=== PATIENT | male | born 1960 | race Caucasian/White ===

== ENCOUNTER 2018-06-27 11:34 | Outpatient (RCR) | payer BC, SELFPAY | END 2018-07-04 23:59 | disposition home or self-care (01) | LOC: CR 11:34 | PROVIDERS: PCP Family Medicine; Visit Provider Family Medicine | DX: Z95.1 Presence of aortocoronary bypass graft (principal); I25.2 Old myocardial infarction; I10 Essential (primary) hypertension; Z51.89 Encounter for other specified aftercare | CPT/HCPCS: S9472 ==

== ENCOUNTER 2018-07-06 12:01 | Outpatient (RCR) | payer BC, SELFPAY | END 2018-08-03 23:59 | disposition home or self-care (01) | LOC: CR 12:01 | PROVIDERS: PCP Family Medicine; Visit Provider Family Medicine | DX: Z95.1 Presence of aortocoronary bypass graft (principal); I25.2 Old myocardial infarction; I10 Essential (primary) hypertension; Z51.89 Encounter for other specified aftercare | CPT/HCPCS: S9472 ==

== ENCOUNTER 2018-08-11 00:37 | Outpatient (CLI) | payer BC, SELFPAY ==
--- NOTE | 2018-08-11 09:51 | DI.RAD_ITS ---
SYMPTOM/DIAGNOSIS: DYSPHAGIA, R13.10 BARIUM SWALLOW: Fluoroscopy Time: 01.09 seconds Routine examination was performed. PA and lateral chest was performed. Comparison is 02/17/18. Heart size and pulmonary vasculature are stable. Sternal wires are in place. The patient is status post CABG. The lungs are clear. No effusions or pneumothoraces are identified. The bones are intact. The lungs appear hyperinflated suggesting underlying COPD. There is a normal swallowing mechanism. No gastroesophageal reflux, penetration or aspiration was noted during the examination. There is a small hiatal hernia. No ulcers, strictures, intrinsic or extrinsic masses are seen in the esophagus. Presbyesophagus was noted. IMPRESSION: Small hiatal hernia. No evidence of gastroesophageal reflux or aspiration.
[2018-08-11] MEDS: Barium Sulfate 60% W/V 355 ML BTL PO (11:20)
== END 2018-08-11 00:57 ==
PROVIDERS: PCP Family Medicine; Visit Provider Family Medicine
DX: R13.10 Dysphagia, unspecified (principal); K44.9 Diaphragmatic hernia without obstruction or gangrene
CPT/HCPCS: 74220; J3490

== ENCOUNTER 2019-04-14 08:32 | Outpatient (CLI) | payer BC, SELFPAY ==
[2019-04-14 11:13] LABS: Anion Gap 9.9 mmol/L (3-11); BUN 11 mg/dL (7-18); CO2 26.1 mmol/L (21.0-32.0); CREATININE 0.89 mg/dL (0.70-1.30); Calcium 8.8 mg/dL (8.5-10.1); Calculated LDL 84; Chloride 104 mmol/L (98-107); Cholesterol 155 mg/dL (50-200); Glucose 63 mg/dL (70-100); HDL Cholesterol 35 mg/dL (40-60); Potassium 4.2 mmol/L (3.5-5.1); Sodium 140 mmol/L (136-145); Triglyceride 181 mg/dL (30-150)
[2019-04-15 10:10] LABS: PSA, Screening 0.4 ng/ml (0-3.5)
== END 2019-04-14 08:52 ==
PROVIDERS: PCP Family Medicine; Visit Provider Family Medicine
DX: E78.5 Hyperlipidemia, unspecified (principal); I25.10 Atherosclerotic heart disease of native coronary artery without angina pectoris; Z12.5 Encounter for screening for malignant neoplasm of prostate
CPT/HCPCS: 36415; 80048; 80061; 83721; 84153

== ENCOUNTER → 2020-10-17 10:11 | Outpatient (CLI) | payer BC, SELFPAY ==
--- NOTE | 2020-10-17 10:00 | DI.RAD_ITS ---
EXAM: XR ELBOW RT COMPLETE CLINICAL HISTORY: right elbow pain M25.529 G89.29 CHRONIC PAIN. TECHNIQUE: 2D digital imaging was performed. COMPARISON: No exams were available for comparison FINDINGS: BONES: No acute fracture is present. No bony destructive lesion is seen. JOINTS: The elbow is normally aligned. No joint effusion is seen. SOFT TISSUE: Normal. IMPRESSION: Unremarkable radiographs of the right elbow. DATA REPOSITORY: RADIATION DOSE DELIVERED:
== END ==
DX: G89.29 Other chronic pain (principal); M25.521 Pain in right elbow
CPT/HCPCS: 73080

== ENCOUNTER 2021-01-06 07:17 | Day surgery (SDC) | payer BC, SELFPAY ==
[2021-01-06 07:20] VITALS: BP 131/81; PULSE 56; RESP 18; TEMP 36.4; O2SAT 100
[2021-01-06] MEDS: Lactated Ringers 1,000 ML 80 ML IV (07:54)
--- NOTE | 2021-01-06 08:18 | W.PM.DSUDISC ---
Discharge Plan Disposition Patient Disposition: HOME Condition: Good Discharge Details Reason For Visit: colon scope Attending Provider: Lora Kirkpatrick Primary Care Provider: Cindy Gaming Home Meds and New Rx's Prescriptions: Continued metoprolol succinate 50 mg tablet extended release 24 hr 50 mg PO DAILY Qty: 90 RF: 4 pantoprazole 40 mg tablet,delayed release (DR/EC) 40 mg PO DAILY Qty: 90 RF: 4 aspirin 81 MG tablet,chewable 81 mg PO DAILY RF: 0 acetaminophen 500 MG tablet 1,000 mg PO Q6H PRN RF: 0 amlodipine 5 mg tablet 5 mg PO DAILY Qty: 90 RF: 4 atorvastatin 40 mg tablet 40 mg PO DAILY Qty: 90 RF: 4 Discontinued polyethylene glycol 3350 17 gram/dose powder 238 g PO ONCE Qty: 238 RF: 0 bisacodyl [Dulcolax (bisacodyl)] 5 mg tablet,delayed release (DR/EC) 5 mg PO ONCE Qty: 4 RF: 0 Discharge Instructions Additional Instructions: Findings:polyps x4 moderate diverticula Follow up:We will send a letter in ~3wks w/ the results of pathology and when to repeat the colonoscopy. -No ASA/NSAID's for 5 days. Please call if you develop: fevers >101.5 Nausea or Vomiting Abdominal pain that is not transient DAY SURGERY UNIT POST COLONOSCOPY INSTRUCTIONS 1. Because there will be medication in your system for the next 24 hours, you may feel a little sleepy. Your coordination will be affected. Therefore: a. Do not drive or operate dangerous equipment for 24 hours. b. Do not drink alcohol beverages for 24 hours (not even beer). c. Plan to go home and rest for the day. 2. Generally there are no restrictions on your activity after a day or so has gone by, but you may feel a bit fatigued for a few days. 3 After you arrive home you may have a light meal and return to a normal diet as you can tolerate it without feeling sick to your stomach. 4. After surgery, you may feel pain or discomfort. This should be only transient, but if it persists please contact your doctor. 5. If there are any questions regarding the findings of your procedure, please feel free to contact your doctor. 6. If you are unable to contact your doctor with a problem, contact the hospital at [phone]. 7. Continue all your regular medications unless directed otherwise. I understand the above instructions and have no questions. Signature of Patient or Responsible Adult Escort Date/Time Name of Responsible Adult Escort Signature of Nurse Date/Time Activity:: no lifting over 20 pounds or strenuous activity x24 hours Diet:: Small weight meals x24 hours Discharge Orders Discharge Orders: Discharge Order (Routine); Ordered 01/06/21 Ordered By: Lora Kirkpatrick
--- NOTE | 2021-01-06 08:35 | BOWEL_PTH ---
PATIENT: Jack Martinez LOC: [facility] U#:[id number] AGE/SX: 60/M ROOM: RE01/06/[address]: Lora Kirkpatrick : 1960 BED: DIS: 01/06/2021 SPEC #: [id number] RECD: 01/06/21 12:40 STATUS: PADDY RESylvain #: [id number] JEN: 01/06/21 08:[address]: Lora Kirkpatrick DEPT: Surgical Specimen RECD BY: Thi Ignacio ENTERED: 01/06/21 12:41 SP TYPE: Bowel OTHR DR: Cindy Gaming APRN Tissues: 1 - BIOPSY BOWEL 2 - BIOPSY BOWEL 3 - BIOPSY BOWEL 4 - BIOPSY BOWEL Procedures: GROSS AND MICRO LEVEL 4 Comments: [id number]
--- NOTE | 2021-01-06 09:05 | DSE_ITS ---
Date of service: 01/06/21 Time of Service: 09:05 DS: Diagnosis Discharge Diagnosis (1) Adenomatous polyps: Status: Acute (2) Diverticula of colon: Status: Acute Discharge Plan Disposition Patient Disposition: HOME Condition: Good Discharge Details Reason For Visit: colon scope Attending Provider: Lora Kirkpatrick Primary Care Provider: Cindy Gaming Home Meds and New Rx's Prescriptions: Continued metoprolol succinate 50 mg tablet extended release 24 hr 50 mg PO DAILY Qty: 90 RF: 4 pantoprazole 40 mg tablet,delayed release (DR/EC) 40 mg PO DAILY Qty: 90 RF: 4 aspirin 81 MG tablet,chewable 81 mg PO DAILY RF: 0 acetaminophen 500 MG tablet 1,000 mg PO Q6H PRN RF: 0 amlodipine 5 mg tablet 5 mg PO DAILY Qty: 90 RF: 4 atorvastatin 40 mg tablet 40 mg PO DAILY Qty: 90 RF: 4 Discontinued polyethylene glycol 3350 17 gram/dose powder 238 g PO ONCE Qty: 238 RF: 0 bisacodyl [Dulcolax (bisacodyl)] 5 mg tablet,delayed release (DR/EC) 5 mg PO ONCE Qty: 4 RF: 0 Discharge Instructions Additional Instructions: Findings: Follow up: Please call if you develop: fevers >101.5 Nausea or Vomiting Abdominal pain that is not transient DAY SURGERY UNIT POST COLONOSCOPY INSTRUCTIONS 1. Because there will be medication in your system for the next 24 hours, you may feel a little sleepy. Your coordination will be affected. Therefore: a. Do not drive or operate dangerous equipment for 24 hours. b. Do not drink alcohol beverages for 24 hours (not even beer). c. Plan to go home and rest for the day. 2. Generally there are no restrictions on your activity after a day or so has gone by, but you may feel a bit fatigued for a few days. 3 After you arrive home you may have a light meal and return to a normal diet as you can tolerate it without feeling sick to your stomach. 4. After surgery, you may feel pain or discomfort. This should be only transient, but if it persists please contact your doctor. 5. If there are any questions regarding the findings of your procedure, please feel free to contact your doctor. 6. If you are unable to contact your doctor with a problem, contact the hospital at [phone]. 7. Continue all your regular medications unless directed otherwise. I understand the above instructions and have no questions. Signature of Patient or Responsible Adult Escort Date/Time Name of Responsible Adult Escort Signature of Nurse Date/Time Activity:: no lifting over 20 pounds or strenuous activity x24 hours Diet:: Small weight meals x24 hours Discharge Orders Discharge Orders: Discharge Order (Routine); Ordered 01/06/21 Ordered By: Lora Kirkpatrick DS: Data Vitals/I&O Vitals and I&O: Vital Signs Temperature 36.4 C L 01/06/21 07:20 Pulse 56 L 01/06/21 07:20 Pulse Rhythm Regular 01/06/21 07:20 Respiratory Rate 18 01/06/21 07:20 Respiratory Depth Normal 01/06/21 07:20 Blood Pressure 131/81 01/06/21 07:20 Pulse Oximetry 100 01/06/21 07:20 Oxygen Delivery Method Room Air 01/06/21 07:20 Oxygen Flow Rate 0 01/06/21 07:20 Intake & Output 01/05/21 01/05/21 01/06/21 11:59 23:59 11:59 Intake Total 300 / 300 Balance 300 / 300 Weight 76.884 kg 75.1 kg Intake: IV 300 / 300 PFSH Medical History (Updated 01/06/21 @ 09:06 by Lora M Stoiber, DO) Elbow pain, chronic Family history of prostate cancer Testicular abnormality 2017 - Epididymal cysts (> right) versus spermatoceles per U/S Surgical History (Updated 01/06/21 @ 07:37 by Brisa Navarrete) Arthroplasty of knee error Arthroscopy, Shoulder RIGHT BUNIONECTOMY LEFT S/P triple vessel bypass Family History Mother Heart disease Hyperlipidemia Cancer uterine Father , AGE 49 Essential hypertension Heart disease Myocardial infarction Stroke Maternal Grandfather Bone cancer Paternal Grandfather No problems noted. Maternal Grandmother Brain cancer Paternal Grandmother No problems noted. Brother Prostate cancer Sister Hyperlipidemia Thyroid cancer Son No problems noted. Son No problems noted. Brother Diabetes Social History Smoking/Tobacco Use Status: Former Tobacco Use Quit Date: 07/05/17 Tobacco: How many years used: 18 Smoking risk assessment performed?: Yes Alcohol Intake: never Drug use: Never Caregiver/Support person: No Household members: other Details: Mother, Uncle Housing: house Communication Needs: None Do you need help understanding health information?: Rarely current occupation: [employer] Pets and animals: Yes Pets and animals: cat(s) and dog(s) Sexually active: Yes Do you think of yourself as: straight/heterosexual What is your relationship status?: How often do you talk on the phone with friends or family?: never How often do you get together with friends or relatives?: never How often do you attend scientologist or temple services?: 1-3 times per year Do you belong to any clubs or organized social groups?: no Panel score (0-1 are the most socially isolated patients): 0 What type of physical activity do you participate in: walking Duration: 30-45 minutes/day Frequency: daily Aissatou/Restorationist: Christianity Seatbelt use: sometimes Helmet use: Yes Helmet use: always Drive intox or ride w/intox commercial truck driver: No Do you feel safe at home: Yes Do you feel safe in your relationship?: Yes Victim of physical abuse: No Victim of emotional abuse: No Would you like helpful sources: No
--- NOTE | 2021-01-06 09:06 | COLE_ITS ---
Date of service: 01/06/21 Time of Service: 09:06 Colonoscopy Report Date of procedure: 01/06/21 Pre-op diagnosis general: CRC screen Post-op diagnosis procedure note: other (polyps and divertic ) Surgeon: Lora Kirkpatrick Anesthesia proc note operative: GETA Estimated blood loss (mL): 2 Pathology: other Complications: None Disposition: same day Prep: Miralax/Dulcolax Retraction Time: 15 mins Procedure Description: After informed consent was obtained the patient was taken to the procedure room and placed in a left decubitous position. Monitors were applied and a time out was done. The patients name, date of , procedure, allergies to medications and metal in their body was reviewed. The patient was then sedated. Once sedated and comfortable a rectal exam was done. External exam was normal. Internal exam revealed a normal sphincter tone and no palpable masses. The scope was then introduced and retrofelexed. no internal hemorrhoids were identified. The scope was then advanced to the cecum w/out difficulty. The TI and appendiceal orifice were identified. The prep was good. The scope was then slowly retracted over 15 minutes back into the rectum. He had 4 polyps removed. Each of these polyps was less than 5 mm, flat, not ulcerated. Each of these polyps was removed with a cold biting forcep. Each specimen is retrieved and no bleeding is noted. Polyps are removed at 15, 30, 20cm, and in the rectum. She also has moderate diverticula confined to the sigmoid colon. There is no signs of active bleeding or infection. The scope was removed and the patient was woken up and taken back to Same day surgery in stable condition. The patient tolerated the procedure well and there were no immediate complications. Follow up: The patient should follow up in 3-5 years ~path pd, unless they d evelop changes in bowel habits or other new gastrointestinal complaints.
[2021-01-06 09:45] VITALS: BP 123/69; PULSE 58; RESP 18; TEMP 36; O2SAT 98
== END 2021-01-06 10:40 | disposition home or self-care (01) ==
PROVIDERS: Visit Provider Surgery
PROC: 0DJD8ZZ Inspection of Lower Intestinal Tract, Via Natural or Artificial Opening Endoscopic (ICD-10-PCS; CPT 45378; principal; 2021-01-06 08:15)
DX: Z12.11 Encounter for screening for malignant neoplasm of colon (principal); K63.5 Polyp of colon; K62.1 Rectal polyp; K57.30 Diverticulosis of large intestine without perforation or abscess without bleeding
CPT/HCPCS: 45380; 88305; J2001

== ENCOUNTER 2021-06-16 02:14 | Outpatient (CLI) | payer BC, SELFPAY ==
[2021-06-16 13:34] LABS: ALT 23 U/L (16-63); AST 23 U/L (15-37); Albumin 3.8 g/dL (3.4-5.0); Alkaline Phosphatase 93 U/L (46-116); BUN 13 mg/dL (7-18); Bilirubin, Total 0.4 mg/dL (0.2-1.0); CREATININE 0.8 mg/dL (0.70-1.30); Calcium 9.1 mg/dL (8.5-10.1); Calculated LDL 117 mg/dL (<100); Chloride 108 mmol/L (98-107); Cholesterol 170 mg/dL (<200); Glucose 90 mg/dL (74-106); HDL Cholesterol 37 mg/dL (40-60); Potassium 4.7 mmol/L (3.5-5.1); Sodium 139 mmol/L (136-145); Triglyceride 83 mg/dL (<150)
[2021-06-16 17:19] LABS: PSA, Screening 0.6 ng/mL (0.0-4.5)
== END 2021-06-16 02:15 | disposition home or self-care (01) ==
PROVIDERS: Visit Provider Family Medicine
DX: E78.5 Hyperlipidemia, unspecified (principal); I10 Essential (primary) hypertension; F41.9 Anxiety disorder, unspecified; Z12.5 Encounter for screening for malignant neoplasm of prostate; Z80.42 Family history of malignant neoplasm of prostate
CPT/HCPCS: 36415; 80053; 80061; 84153

== ENCOUNTER 2021-11-14 13:46 | Outpatient (CLI) | payer BC, SELFPAY ==
--- NOTE | 2021-11-14 13:00 | DI.RAD_ITS ---
Exam(s) XR TOE LT GREAT EXAM: XR TOE LT GREAT CLINICAL HISTORY: injury left great toe r/o fx, S99.22A. suspect dislocation TECHNIQUE: COMPARISON: No exams were available for comparison FINDINGS: Three views were obtained. There is a dorsal dislocation of the distal phalanx on the proximal phala nx of the great toe. There is no fracture identified on the films obtained. IMPRESSION: RADIATION DOSE DELIVERED: Total DLP
--- NOTE | 2021-11-14 15:30 | DI.RAD_ITS ---
Exam(s) XR TOE LT GREAT EXAM: XR TOE LT GREAT CLINICAL HISTORY: post reduction s93.105a dislocation left toe TECHNIQUE: COMPARISON: CR XR TOE LT GREAT from 11/14/2021 FINDINGS: Three views were obtained. The previously described IP joint dislocation of the great toe has been r educed. No fracture is seen. IMPRESSION: RADIATION DOSE DELIVERED: Total DLP
== END 2021-11-14 14:06 ==
LOC: DI 13:49
PROVIDERS: Visit Provider Physician Assistant
DX: S93.105A Unspecified dislocation of left toe(s), initial encounter
CPT/HCPCS: 73660

== ENCOUNTER 2022-01-15 00:09 | Outpatient (CLI) | payer BC, SELFPAY ==
--- NOTE | 2022-01-15 08:00 | DI.RAD_ITS ---
Exam(s) XR FOOT LT COMPLETE EXAM: XR FOOT LT COMPLETE CLINICAL HISTORY: s/p injury 8 wk ago-great toe disloc-still toe pain,hyperextension injury,. TECHNIQUE: 2D digital imaging was performed. COMPARISON: CR XR TOE LT GREAT from 11/14/2021 FINDINGS: BONES: No acute fracture is present. No bony destructive lesion is seen. Prior 1st metatarsal bunion ectomy. JOINTS: No dislocation present. Joint spaces well maintained. SOFT TISSUE: Normal. IMPRESSION: No acute abnormality. Bunionectomy. DATA REPOSITORY: RADIATION DOSE DELIVERED:
== END 2022-01-15 00:29 ==
LOC: DI 00:09
PROVIDERS: Visit Provider Family Medicine
DX: M79.675 Pain in left toe(s) (principal); S93.692D Other sprain of left foot, subsequent encounter; Z98.890 Other specified postprocedural states; S99.822D Other specified injuries of left foot, subsequent encounter
CPT/HCPCS: 73630

== ENCOUNTER → 2022-03-27 11:39 | Outpatient (CLI) | payer OTHER, SELFPAY ==
--- NOTE | 2022-03-27 11:00 | DI.RAD_ITS ---
Exam(s) XR FOOT LT COMPLETE EXAM: XR FOOT LT COMPLETE CLINICAL HISTORY: SECOND injury of left foot (11/14/21) - S97.82XA TECHNIQUE: COMPARISON: CR XR FOOT LT COMPLETE from 01/15/2022 FINDINGS: Three views were obtained. Old 1st metatarsal osteotomy is noted, no change in appearance from January 15. There is no evidence of acute fracture or dislocation. IMPRESSION: RADIATION DOSE DELIVERED: Total DLP
== END ==
DX: S97.82XA Crushing injury of left foot, initial encounter (principal); M79.672 Pain in left foot; Z98.890 Other specified postprocedural states
CPT/HCPCS: 73630

== ENCOUNTER 2022-12-18 12:22 | Outpatient (CLI) | payer BC, SELFPAY ==
[2022-12-18 13:04] LABS: ALT 22 U/L (16-63); AST 19 U/L (15-37); Alkaline Phosphatase 109 U/L (46-116); Anion Gap 8.9 mmol/L (3-11); BUN 10 mg/dL (7-18); Bilirubin, Total 0.4 mg/dL (0.2-1.0); CO2 27.1 mmol/L (21.0-32.0); Calcium 9.3 mg/dL (8.5-10.1); Calculated LDL 86 mg/dL (<100); Chloride 107 mmol/L (98-107); Cholesterol 155 mg/dL (<200); Glucose 91 mg/dL (74-106); HDL Cholesterol 46 mg/dL (40-60); Potassium 4.2 mmol/L (3.5-5.1); Sodium 143 mmol/L (136-145); Total Protein 7.5 g/dL (6.4-8.2); Triglyceride 115 mg/dL (<150)
[2022-12-18 18:04] LABS: PSA, Screening 0.3 ng/mL (<=4.5)
== END 2022-12-18 12:23 | disposition home or self-care (01) ==
LOC: LOS 12:29
PROVIDERS: PCP Nurse Practitioner Family; Visit Provider Nurse Practitioner Family
DX: E78.5 Hyperlipidemia, unspecified (principal); Z12.5 Encounter for screening for malignant neoplasm of prostate; I10 Essential (primary) hypertension
CPT/HCPCS: 36415; 80053; 80061; 84153

== ENCOUNTER 2023-11-26 14:18 | Outpatient (REF) | payer BC, SELFPAY ==
[2023-11-26 13:07] LABS: ALT 28 U/L (16-63); AST 17 U/L (15-37); Albumin 3.8 g/dL (3.4-5.0); Alkaline Phosphatase 111 U/L (46-116); Anion Gap 8.5 mmol/L (3-11); BUN 15 mg/dL (7-18); Bilirubin, Total 0.4 mg/dL (0.2-1.0); CO2 26.5 mmol/L (21.0-32.0); CREATININE 0.9 mg/dL (0.70-1.30); Calcium 9.4 mg/dL (8.5-10.1); Calculated LDL 114 mg/dL (<100); Chloride 106 mmol/L (98-107); Cholesterol 179 mg/dL (<200); Estimated GFR 95.97 (mL/min/1.73m2); Glucose 98 mg/dL (74-106); HDL Cholesterol 48 mg/dL (40-60); Potassium 4.4 mmol/L (3.5-5.1); Sodium 141 mmol/L (136-145); Total Protein 7.3 g/dL (6.4-8.2); Triglyceride 88 mg/dL (<150)
[2023-11-26 19:05] LABS: PSA, Screening 0.5 ng/mL (<=4.5)
[2023-11-26 19:46] LABS: HIV-1/2 Ag & Ab Screen Negative (Negative); Hepatitis C Ab w Rflx HCV PCR Negative (Negative)
== END 2023-11-26 14:19 | disposition home or self-care (01) ==
LOC: LBN 14:18
PROVIDERS: PCP Nurse Practitioner Family; Visit Provider Nurse Practitioner Family
DX: E78.5 Hyperlipidemia, unspecified (principal); Z12.5 Encounter for screening for malignant neoplasm of prostate; Z11.4 Encounter for screening for human immunodeficiency virus [HIV]; Z11.59 Encounter for screening for other viral diseases; Z80.42 Family history of malignant neoplasm of prostate
CPT/HCPCS: 80053; 80061; 84153; 86803; 87389

== ENCOUNTER 2024-11-30 10:38 | Outpatient (CLI) | payer BC, SELFPAY ==
[2024-11-30 12:38] LABS: ALT 21 U/L (16-63); AST 22 U/L (15-37); Albumin 3.8 g/dL (3.4-5.0); Alkaline Phosphatase 106 U/L (46-116); Anion Gap 10.2 mmol/L (3-11); BUN 11 mg/dL (7-18); Bilirubin, Total 0.32 mg/dL (0.2-1.0); CO2 26.8 mmol/L (21.0-32.0); Calcium 9.2 mg/dL (8.5-10.1); Calculated LDL 117 mg/dL (<100); Chloride 106 mmol/L (98-107); Cholesterol 200 mg/dL (<200); Estimated GFR 84.05 (mL/min/1.73m2); Glucose 86 mg/dL (74-106); HDL Cholesterol 47 mg/dL (40-60); Sodium 143 mmol/L (136-145); Triglyceride 183 mg/dL (<150)
[2024-11-30 17:56] LABS: PSA, Screening 0.6 ng/mL (<=4.5)
== END 2024-11-30 10:39 | disposition home or self-care (01) ==
LOC: LOS 10:38
PROVIDERS: PCP Nurse Practitioner Family; Referring Provider Nurse Practitioner Family; Visit Provider Nurse Practitioner Family
DX: E78.5 Hyperlipidemia, unspecified (principal); Z80.42 Family history of malignant neoplasm of prostate; Z87.891 Personal history of nicotine dependence; I25.10 Atherosclerotic heart disease of native coronary artery without angina pectoris; I10 Essential (primary) hypertension
CPT/HCPCS: 36415; 80053; 80061; 84153

== ENCOUNTER 2025-05-10 17:40 | Emergency (ER) | payer BC, SELFPAY ==
[2025-05-10 17:46] VITALS: BP 118/69; PULSE 66; RESP 18; TEMP 36.3; O2SAT 96
[2025-05-10 18:36] LABS: Abs Immature Grans 0.02 10^3/uL (0.0-0.06); HCT 42.0 % (40.0-50.0); HGB 14.2 g/dL (13.5-17.5); Immature Grans % 0.2 %; MCH 29.2 pg (27.0-33.0); MCHC 33.8 % (32.0-36.0); MCV 86 fL (80-95); MPV 10.8 fL (8.0-11.0); Platelet Count 198 10^3/uL (130-400); RBC 4.87 10^6/uL (4.36-5.78); RDW 12.5 % (11.8-14.1); RDW-SD 39.2 fL; WBC 8.14 10^3/uL (4.4-10.8)
[2025-05-10 18:53] LABS: ALT 24 U/L (16-63); AST 18 U/L (15-37); Albumin 3.9 g/dL (3.4-5.0); Alkaline Phosphatase 107 U/L (46-116); Anion Gap 8.8 mmol/L (3-11); BUN 13 mg/dL (7-18); Bilirubin, Total 0.3 mg/dL (0.2-1.0); CO2 27.2 mmol/L (21.0-32.0); Calcium 9.0 mg/dL (8.5-10.1); Chloride 107 mmol/L (98-107); Estimated GFR 74.96 (mL/min/1.73m2); Glucose 80 mg/dL (74-106); Potassium 4.4 mmol/L (3.5-5.1); Sodium 143 mmol/L (136-145); Total Protein 7.4 g/dL (6.4-8.2)
[2025-05-10 19:06] LABS: D-Dimer 466 ng/mlFEU (<500)
[2025-05-10] MEDS: Omnipaque 350 MG/ML 100 ML BTL IJ (19:07)
[2025-05-10] MEDS: Normal Saline - Diluent 50 ML VIAL IJ ×2 (19:08→19:09)
[2025-05-10] MEDS: Omnipaque 350 MG/ML 50 ML BTL IJ (19:08)
[2025-05-10] MEDS: Normal Saline Flush 10 ML SYR IVP (19:09)
--- NOTE | 2025-05-10 19:22 | DI.CT_ITS ---
Exam(s) CT ABD AORTA CTA W RUNOFF EXAM: CT ABD AORTA CTA W RUNOFF CLINICAL HISTORY: hx stent Lleg, popliteal pain, paresthesias. TECHNIQUE: Imaging Protocol: Axial CT angiography was performed with multi- slice acquisition and multi-planar and/or 3D reconstructions. CONTRAST MATERIAL: Intravenous: Omnipaque 350 Contrast volume:150 ml Contrast route:IV - Oral: no COMPARISON: CT RENAL COLIC WO CONTRAST from 06/15/2013 FINDINGS: Vascular Structures: Aorta: Multi focal diffuse calcified and noncalcified atherosclerotic changes. No stenosis. No aneurysm. No dissection. Celiac [place]: Plaque at the origin causing stenosis 60-70 percent. SMA: No evidence of stenosis. BARBARA: Patent. Renal Arteries: Mild plaque at the origin of the right renal artery. No evidence of stenosis. There is a single renal artery perfusing the right kidney. There are 2 renal arteries perfusing the left kidney. Iliac Arteries: Multi focal calcified plaque without significant stenosis. Common Femoral Arteries: Mild scattered plaque. No evidence of stenosis. Lower extremities: Right: Superficial Femoral: Scattered plaque. No evidence of stenosis. Popliteal: Scattered plaque. No evidence of stenosis. Lower leg arteries: Left: Superficial Femoral: Mild scattered plaque. No significant stenosis. Popliteal: Stent in place. There is a focal stenosis at the junction of the popliteal artery with the stent causing stenosis of approximately 80 percent. Lower leg arteries: Extensive diffuse calcified and noncalcified plaque involving all 3 vessels, greatest in the posterior tibial artery with multifocal areas of severe stenosis. Soft Tissues: Lungs: No acute findings. Liver: Mild fatty infiltration. No measurable mass. Gallbladder and biliary tract: No radiodense calculus or dilation. Pancreas: Normal density, no abnormal calcifications or inflammatory process. Spleen: Normal. Kidneys: Normal size, contour and axis. No radiodense stones or obstructive uropathy. No masses seen. Adrenal glands: No masses seen. Aorta: Abdominal portion non-dilated. Bladder: Symmetric distention, no gross wall thickening. Bowel: No obstruction or bowel wall thickening. Sigmoid diverticulosis. Peritoneal cavity: No ascites, collection or mesenteric inflammatory response. Bones: Within normal limits. Reproductive: Unremarkable. 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 Multifocal plaque in the superficial femoral arteries without significant stenosis. Left popliteal artery stent with significant stenosis at the proximal end, proximally 80 percent. Severe disease in the lower leg arteries, greater in the posterior tibial arteries. The findings are greater on the right where there are multi focal areas of occlusion. The preliminary [facility] report was reviewed. RADIATION DOSE DELIVERED: Total DLP DATA REPOSITORY: All CT scans at this facility are submitted to the National Radiology Data Registry (NRDR) Dose Index Registry (DIR) with the [employer] ([employer]). RADIATION OPTIMIZATION: All CT scans at this facility use at least one of these dose optimization techniques: automated exposure control; mA and/or kV adjustment per patient size (includes targeted exams where dose is matched to clinical indication); or iterative reconstruction.
--- NOTE | 2025-05-10 20:41 | DI.[facility]_ITS ---
PROCEDURE INFORMATION: Exam: CTA Abdominal Aorta and Bilateral Lower Extremities (Run-off) With Contrast Exam date and time: 05/10/2025 6:56 PM Age: 64 years old Clinical indication: Other: HX stent lleg, popliteal pain, paresthesias; Prior surgery; Surgery date: 6+ months TECHNIQUE: Imaging protocol: Computed tomographic angiography of the of the abdominal aorta, pelvis and bilateral lower extremities with contrast. 3D rendering (Not supervised by radiologist): MIP and/or 3D reconstructed images were created by the technologist. Contrast material: OMNIPAQUE 350; Contrast volume: 150 ml; Contrast route: INTRAVENOUS (IV); COMPARISON: CR XR FOOT LT COMPLETE 03/27/2022 11:31 AM FINDINGS: Aorta: Mild calcified plaques within the abdominal aorta without hemodynamically significant stenosis. Celiac trunk and mesenteric arteries: Focal stenosis identified in the origin of the celiac artery measuring a proximally 60-70% and considered to be hemodynamically significant. Renal arteries: No occlusion or significant stenosis. Right iliac arteries: No occlusion or significant stenosis. Right femoral/popliteal arteries: Scattered calcified and noncalcified plaques within the right superficial femoral artery without hemodynamically significant stenosis. Calcified and noncalcified plaques within the right popliteal artery with no hemodynamically significant stenosis. Right infrapopliteal arteries: Calcified and noncalcified plaques within all 3 runoff arteries with severe disease in the right posterior tibial artery which is predominantly occluded likely on a chronic basis. Focal stenoses identified in the right tibioperoneal trunk many of which are hemodynamically significant. Left iliac arteries: No occlusion or significant stenosis. Left femoral/popliteal arteries: Calcified and noncalcified plaques within the left superficial femoral artery without hemodynamically significant stenosis. Calcified and noncalcified plaques within the left popliteal artery with a stent noted which appears to be patent. However at the junction of the [place] popliteal artery in the proximal stent there is a focal stenosis measuring greater than 80-85% and considered to be hemodynamically significant. Left infrapopliteal arteries: Calcified and noncalcified plaque identified within all 3 runoff arteries in the left lower extremity with severe disease identified in the left posterior tibial artery with multiple focal stenoses many of which are hemodynamically significant. Liver: Fatty infiltration of the liver. Gallbladder and biliary ducts: Unremarkable. No calcified stones. No ductal dilation. Pancreas: Unremarkable. No mass. No ductal dilation. Spleen: Normal. No splenomegaly. Adrenal glands: Normal. No mass. Kidneys and ureters: Normal. No mass. Stomach and bowel: Sigmoid diverticulosis. No CT evidence for diverticulitis. Appendix: No evidence of appendicitis. Urinary bladder: Unremarkable. No mass. Reproductive: Unremarkable as visualized. Intraperitoneal space: Unremarkable. No free air. No significant fluid collection. Lymph nodes: No lymphadenopathy. Bones/joints: No acute fracture. No dislocation. Soft tissues: Unremarkable. IMPRESSION: 1. Left popliteal stent identified and patent although there is a focal high-grade stenosis identified measuring proximally 80-85% at the origin of the stent and junction with the [place] popliteal artery. 2. Two-vessel runoff identified in both lower extremities with the anterior tibial arteries and peroneal arteries being the dominant runoff arteries with severe disease in both posterior tibial arteries with multiple focal high-grade stenoses. 3. Focal stenosis identified in the origin of the celiac artery measuring a proximally 60-70% and considered to be hemodynamically significant. 4. Sigmoid diverticulosis. 5. Fatty infiltration of the liver. Dictated and Authenticated by: Titi Blankenship MD. Orderin Anselmo Ness MD
[2025-05-10 20:51] VITALS: BP 120/74; PULSE 70
--- NOTE | 2025-05-10 22:29 | ED.GENADUL_ITS ---
Discharge Plan Disposition Patient Disposition: Home Condition: Stable Discharge Details Clinical Impression: Popliteal artery stenosis, left Primary Care Provider: Shaan Trujillo ED Provider: Thi Briones Home Meds and New Rx's Prescriptions: Continued gabapentin 300 mg capsule 300 mg PO BID Qty: 180 3RF amlodipine 5 mg tablet 5 mg PO DAILY Qty: 90 4RF atorvastatin 40 mg tablet 40 mg PO DAILY Qty: 90 4RF aspirin 81 MG tablet,chewable 81 mg PO DAILY acetaminophen 500 MG tablet 1,000 mg PO Q6H PRN metoprolol succinate 50 mg tablet extended release 24 hr 50 mg PO DAILY Qty: 90 14RF pantoprazole 40 mg tablet,delayed release (DR/EC) See Rx Instructions .ROUTE .COMPLEX Qty: 90 4RF Dose Instruction: TAKE ONE TABLET BY MOUTH EVERY DAY Rx Instructions: TAKE ONE TABLET BY MOUTH EVERY DAY Discharge Instructions Additional Instructions: follow-up with [facility] vascular surgery tomorrow, let them know we spoke with Dr Simpson in the emergency department today and they'd like to see you this week should you develop worsening symptoms or discoloration, please return immediately for reassessment Referrals: thanh [Other] Shaan Trujillo, [employer] [Primary Care Provider, Medicine] HPI General Date/Time Provider Initiated Documentation: 05/10/25 18:17 . HPI Narrative: 64-year-old male with popliteal artery stent, hyperlipidemia, tobacco abuse, and hypertension presents with claudication pain in the left lower extremity. Pain started 5-6 days ago, worsened after returning from [place]. Concerned about stent. No anticoagulation. No chest pain or shortness of breath. Related Data Home Medications ?Medication ?Instructions ?Recorded ?Confirmed aspirin 81 mg chewable tablet 81 mg PO DAILY 08/06/17 05/10/25 acetaminophen 500 mg tablet 1,000 mg PO Q6H PRN 05/10/25 gabapentin 300 mg capsule 300 mg PO BID #180 caps 05/0505/10/25 metoprolol succinate 50 mg 50 mg PO DAILY #90 tabs 12/2805/10/25 tablet,extended release 24 hr pantoprazole 40 mg tablet,delayed See Rx Instructions .Route 06/05/24 05/10/25 release .COMPLEX #90 tabs amlodipine 5 mg tablet 5 mg PO DAILY #90 tab-caps 0 11/30/24 05/10/25 atorvastatin 40 mg tablet 40 mg PO DAILY #90 tab-caps 11/30/24 05/10/25 Previous Rx's ?Medication ?Instructions ?Recorded gabapentin 300 mg capsule 300 mg PO BID #180 caps 05/05 01/25 metoprolol succinate 50 mg 50 mg PO DAILY #90 tabs 12/28 tablet,extended release 24 hr pantoprazole 40 mg tablet,delayed See Rx Instructions .Route 06/05/24 release .COMPLEX #90 tabs amlodipine 5 mg tablet 5 mg PO DAILY #90 tab-caps 0 11/30/24 atorvastatin 40 mg tablet 40 mg PO DAILY #90 tab-caps 11/30/24 Allergies Allergy/AdvReac Type Severity Reaction Status Date / Time morphine Allergy Mild Skin Rash Verified 05/10/25 17:51 naproxen sodium (From Aleve) AdvReac Severe Psychosis Verified 05/10/25 17:51 milk AdvReac Intermediate GI Verified 05/10/25 17:51 intolerance General Stated Complaint: Orthopedic PARUL: 4 Exam Narrative Exam Narrative: General Appearance: Normal. Vital signs: Within normal limits. HEENT: Within normal limits. Respiratory: Within normal limits. Cardiovascular: DP and PT pulses intact, DP pulse difficult to find. Extremities: Left foot warm. Capillary refill slightly delayed but intact. Skin: Warm and dry, no rash. Neurological: Normal. Course Vital Signs Vital signs: Vital Signs Temperature 36.3 C L 05/10/25 17:46 Pulse 66 05/10/25 17:46 Respiratory Rate 18 05/10/25 17:46 Blood Pressure 118/69 05/10/25 17:46 Pulse Oximetry 96 05/10/25 17:46 Temperature 36.3 C L 05/10/25 17:46 Temperature Source Oral 05/10/25 17:46 Pulse 70 05/10/25 20:51 Respiratory Rate 18 05/10/25 17:46 Blood Pressure 120/74 05/10/25 20:51 Blood Pressure Mean 89 05/10/25 20:51 Blood Pressure Position Sitting 05/10/25 17:46 Pulse Oximetry 96 05/10/25 17:46 Pain Level 7 05/10/25 17:46 Lab/Test Results Lab/Test Results: Laboratory Tests Range/Units 07/07/25 18:31 WBC (4.4-10.8) 10^3/uL 8.14 RBC (4.36-5.78) 10^6/uL 4.87 Hgb (13.5-17.5) g/dL 14.2 Hct (40.0-50.0) % 42.0 MCV (80-95) fL 86 MCH (27.0-33.0) pg 29.2 MCHC (32.0-36.0) % 33.8 RDW (11.8-14.1) % 12.5 Plt Count (130-400) 10^3/uL 198 MPV (8.0-11.0) fL 10.8 Immature Gran % % 0.2 Neutrophils % % 50.0 Lymphocytes % % 36.6 Monocytes % % 9.5 Eosinophils % % 3.1 Basophils % % 0.6 Nucleated RBC % (0.0-0.3) % 0.0 Absolute Neutrophils (1.2-6.7) 10^3/uL 4.07 Absolute Lymphocytes (1.2-3.4) 10^3/uL 2.98 Absolute Monocytes (0.1-0.8) 10^3/uL 0.77 Absolute Eosinophils (0.0-0.7) 10^3/uL 0.25 Absolute Basophils (0.0-0.2) 10^3/uL 0.05 D-Dimer (<500) ng/mlFEU 466 Sodium (136-145) mmol/L 143 Potassium (3.5-5.1) mmol/L 4.4 Chloride (98-107) mmol/L 107 Carbon Dioxide (21.0-32.0) mmol/L 27.2 Anion Gap (3-11) mmol/L 8.8 BUN (7-18) mg/dL 13 Creatinine (0.70-1.30) mg/dL 1.1 Est GFR (CKD-EPI 2020) (mL/min/1.73m2) 74.96 Glucose (74-106) mg/dL 80 Calcium (8.5-10.1) mg/dL 9.0 Total Bilirubin (0.2-1.0) mg/dL 0.3 AST (15-37) U/L 18 ALT (16-63) U/L 24 Alkaline Phosphatase (46-116) U/L 107 Total Protein (6.4-8.2) g/dL 7.4 Albumin (3.4-5.0) g/dL 3.9 Medical Decision Making Imaging: CTA shows 80-85% stenosis at stent origin and [place] popliteal artery junction. Two-vessel runoff in lower extremities, dominant runoff in anterior tibial and peroneal arteries with severe disease in tibial arteries and focal high-grade stenosis. 60-70% focal stenosis at celiac artery per virtual radiologist. Labs: CBC and chemistry unremarkable. Initial Assessment: 64-year-old male with history of stent in popliteal artery, hyperlipidemia, tobacco abuse, hypertension presents with claudication pain in left lower extremity. Pain started 5-6 days ago, worsened after returning from [place]. Concerned about stent. No anticoagulation, chest pain, or shortness of breath. ED Course: - DP and PT pulses intact, DP pulse challenging to find. - CTA shows 80-85% stenosis at stent origin and [place] popliteal artery junction. - Left foot warm, capillary refill slightly delayed but intact. - No wounds on feet bilaterally. - Unremarkable labs including CBC and chemistry. - Discussed case with Dr. Mata, vascular surgeon at [facility]. - Recommended urgent follow-up this week, no urgent transfer needed. - Hold off on Xarelto until seen this week. - Plan reasonable for discharge. - Will call tomorrow to reiterate follow-up importance. Final Assessment: Patient presents with claudication pain in left lower extremity, with significant stenosis noted on CTA. Vascular surgeon recommends urgent follow-up but no urgent transfer needed. Discharge plan includes holding off on Xarelto and follow-up call to emphasize importance. Clinical Impression: - Claudication pain in left lower extremity Disposition: - Discharge - Follow-Up: Urgent follow-up with vascular surgeon this week MDM Components Evaluation: - Number of Differential Diagnoses or Management Options: Claudication pain in left lower extremity - Amount and Complexity of Data Reviewed: CTA results, unremarkable labs, consultation with vascular surgeon - Risk of Complication and Morbidity or Mortality: High grade stenosis at stent origin and [place] popliteal artery junction, potential risk if follow-up is not timely [facility] All Active Problems (Updated 05/10/25 @ 21:25 by PAT Trejo) Popliteal artery stenosis, left (Acute) Decreased hearing (Acute) Crush injury of left foot (Acute) REPEAT Crush injury at work 03/20/22 (SAME foot as injuried 11/14/21) Closed dislocation of great toe of left foot (Acute) Advanced directives, counseling/discussion (Acute) Hand tendonitis (Acute) left Colon polyp, hyperplastic (Acute ~01/2021) Diverticula of colon (Acute) Adenomatous polyps (Acute) Anxiety (Acute) Essential hypertension (Acute 10/05/16) History of adenomatous polyp of colon (Acute 10/05/16) Hyperlipidemia (Acute) Lactose intolerance (Acute 10/05/16) Migraine (Acute) Status post four vessel coronary artery bypass (Chronic) Coronary artery disease (Chronic) Raynauds phenomenon (Chronic) Intermittent claudication of right lower extremity due to atherosclerosis (Acute) Testicular abnormality (Acute) 2017 - Epididymal cysts (> right) versus spermatoceles per [place] Family history of prostate cancer (Acute) Elbow pain, chronic (Acute) Surgical History History of colonoscopy with polypectomy (~01/06/21) S/P triple vessel bypass BUNIONECTOMY LEFT Arthroscopy, Shoulder RIGHT Arthroplasty of knee error Family History Mother Heart disease Hyperlipidemia Cancer uterine Father , AGE 49 Essential hypertension Heart disease Myocardial infarction Stroke Maternal Grandfather Bone cancer Paternal Grandfather No problems noted. Maternal Grandmother Brain cancer Paternal Grandmother No problems noted. Brother Prostate cancer Sister Hyperlipidemia Thyroid cancer Son No problems noted. Son No problems noted. Brother Diabetes Social History (Updated 11/30/24 @ 15:19 by Cheri Poole) Smoking/Tobacco Use Status: Current-Occasional Tobacco Type: cigarettes and cigars Tobacco: How many years used: 30 Quit status: has quit before Second Hand Exposure: Yes Smoking risk assessment performed?: Yes Alcohol Intake: never Drug use: Rarely Substance use type: marijuana Counseling provided: none Adopted: No Caregiver/Support person: No Household members: other Details: Mother Housing: house Number of Children: 2 number of grandchildren: 6 Communication Needs: None Education Level: high school Details: 12th Do you need help understanding health information?: Rarely current occupation: [employer] Pets and animals: Yes Pets and animals: cat(s) and dog(s) Sexually active: Yes Do you think of yourself as: straight/heterosexual Current gender identity: male What is your relationship status?: How often do you talk on the phone with friends or family?: once per week How often do you get together with friends or relatives?: once per week How often do you attend lutheran or presybeterian services?: 4 or more times per year Do you belong to any clubs or organized social groups?: no Panel score (0-1 are the most socially isolated patients): 1 What type of physical activity do you participate in: walking Duration: > 90 minutes/day Frequency: daily Aissatou/Adventism: Hinduism Seatbelt use: sometimes Helmet use: No Drive intox or ride w/intox hire car driver: No Firearms in home: Yes Firearms unloaded and locked: Yes Do you feel safe at home: Yes Do you feel safe in your relationship?: Yes Victim of physical abuse: No Victim of emotional abuse: No Victim of sexual abuse: No Would you like helpful sources: No
== END 2025-05-10 21:35 | disposition home or self-care (01) ==
PROVIDERS: Emergency Provider Physician Assistant; PCP Nurse Practitioner Family
DX: I70.201 Unspecified atherosclerosis of native arteries of extremities, right leg (principal); E78.5 Hyperlipidemia, unspecified; I10 Essential (primary) hypertension; F17.210 Nicotine dependence, cigarettes, uncomplicated; F17.290 Nicotine dependence, other tobacco product, uncomplicated; Z79.82 Long term (current) use of aspirin
CPT/HCPCS: 75635; 80053; 99285; 85025; 85379; 99284; J3490; Q9967